=== PATIENT | male | born 1985 | race Caucasian/White ===

== ENCOUNTER → 2022-08-06 | Outpatient (CLI) | LOC: M SOG 08:07 | PROVIDERS: ATTEND Physician Assistant | DX: M79.642 Pain in left hand (principal) ==

== ENCOUNTER → 2023-01-21 | Outpatient (CLI) | LOC: M SOG 15:49 | PROVIDERS: ATTEND Physician Assistant | DX: M79.645 Pain in left finger(s) (principal); S63.102A Unspecified subluxation of left thumb, initial encounter; X58.XXXA Exposure to other specified factors, initial encounter; Y92.9 Unspecified place or not applicable; Y93.9 Activity, unspecified; Y99.9 Unspecified external cause status ==

== ENCOUNTER 2023-02-03 08:16 | Day surgery (SDC) | payer OTHER ==
[~2023-02-03] VITALS: Ht 190.5 cm; Wt 103.7 kg
[~2023-02-03 08:16] MED LIST: AZEL0.055 NARES; CELE100C PO; LIDOCAINE W/EPINEPHRINE 1% 20ML VIAL XX ONE; SODIUM BICARBONATE 8.4% INJ 50MEQ 50ML VIAL XX ONE
[2023-02-03] MEDS ORDERED: BACITRACIN OINTMENT 30GM TUBE As Ordered ONE (10:40)
[2023-02-03] MEDS ORDERED: LIDOCAINE 1% MDV 20ML VIAL As Ordered ONE (10:54)
[2023-02-03] MEDS ORDERED: LIDOCAINE 1% MDV 20ML VIAL XX ONE (11:15)
[2023-02-03 11:35] VITALS: BP 135/79; TEMP 97.6; O2SAT 99
== END 2023-02-03 12:00 | disposition home or self-care (01) ==
LOC: M SDC 08:16
PROVIDERS: ATTEND Orthopaedic Surgery Hand Surgery
DX: S61.042A Puncture wound with foreign body of left thumb without damage to nail, initial encounter (principal); W45.8XXA Other foreign body or object entering through skin, initial encounter; W25.XXXA Contact with sharp glass, initial encounter; Y93.9 Activity, unspecified; Y92.9 Unspecified place or not applicable